=== PATIENT | male | born 1950 | race Caucasian/White ===

== ENCOUNTER 2017-04-10 15:57 | Observation (INO) | payer OTHER ==
[~2017-04-10] VITALS: Ht 188 cm; Wt 81.6 kg
[2017-04-10 18:27] LABS: HEMOGLOBIN 13.2 gm/dl (14.0-17.5); RED BLOOD COUNT 4.48 M/UL (4.20-5.50); WHITE BLOOD COUNT 8.8 K/UL (4.5-11.0)
[2017-04-10 18:43] LABS: BUN/CREATININE RATIO 10 (0-10)
[2017-04-11] MEDS ORDERED: COLACE 100MG C100 MG PO (02:51)
[2017-04-11] MEDS ORDERED: ACIDOPHILUS1 EAC4 PO (02:52)
[2017-04-11] MEDS ORDERED: METHOCARBAMOL750 MG PO (02:53)
[2017-04-11] MEDS ORDERED: LOPRESSOR 25 MG25 MG PO (03:05)
[2017-04-11] MEDS ORDERED: OLANZAPINE20 MG PO (03:07)
[2017-04-11] MEDS ORDERED: VAGISTAT-31 EACH VG (03:07)
[2017-04-11] MEDS ORDERED: ZANTAC150 MG PO (03:08)
[2017-04-11] MEDS ORDERED: MIRALAX17 GM PO (03:08)
[2017-04-11] MEDS ORDERED: SENOKOT8.6 MG PO (03:09)
[2017-04-11] MEDS ORDERED: SORBITOL 70% S480 ML PO (03:10)
[2017-04-11] MEDS ORDERED: TRAZODONE HCL100 MG PO (03:11)
[2017-04-11] MEDS ORDERED: ULTRAM50 MG PO (03:12)
[2017-04-11] MEDS ORDERED: LORTAB 5-325 M1 EACH PO (03:13)
[2017-04-11] MEDS ORDERED: ESSENTIAL DAIL1 EACH PO (03:14)
[2017-04-11 07:15] LABS: BUN/CREATININE RATIO 10 (0-10)
== END 2017-04-11 16:40 | disposition other institution (70) ==
LOC: ER1 15:57 → MED SURG 4 21:50 → ZEROF 21:50 → MED SURG 4 04-11 01:50
PROVIDERS: Specialist/Technologist Athletic Trainer; ADMIT Internal Medicine
DX: R06.00 Dyspnea, unspecified (principal); J90 Pleural effusion, not elsewhere classified; F79 Unspecified intellectual disabilities; F17.200 Nicotine dependence, unspecified, uncomplicated; Z85.118 Personal history of other malignant neoplasm of bronchus and lung; Z86.59 Personal history of other mental and behavioral disorders; Z79.891 Long term (current) use of opiate analgesic; Z79.899 Other long term (current) drug therapy; Z88.8 Allergy status to other drugs, medicaments and biological substances
CPT/HCPCS: 36415; 36600; 80048; 80053; 82550; 82553; 82803; 83880; 84484; 85025; 85610; 85730; 93005; 96360; 99285; G0378; J1100; J7050; Q9963